=== PATIENT | male | born 1965 | race Caucasian/White ===

== ENCOUNTER 2017-03-13 08:42 | Day surgery (SDC) | payer OTHER ==
[~2017-03-13 08:42] MED LIST: HYDROmorphone HCL 2 MG/ML VIAL IV PRN; RINGER'S SOLUTION,LACTATED 1,000 ML IV PRN; ROPIVACAINE HCL/PF 40 MG in NORMAL SALINE 16 ML IJ PRN; ceFAZolin SODIUM 1 GM VIAL IV PRN; oxyCODONE HCL/ACETAMINOPHEN 1 TAB TABLET PO PRN
[2017-03-13] MEDS ORDERED: BUPIVACAINE HCL/EPINEPHRINE 10 ML VIAL IJ ONE (11:10)
--- NOTE | 2017-03-13 11:54 | OR ---
Operative Report - Dictated Report Narrative: Date: 03/13/2017 Physician: Torres Davey M.D. Direct Care Provider: Scot Bella PA-C Preoperative diagnosis: Left Knee peripheral medial meniscus tear Postoperative diagnosis: Left Knee peripheral medial meniscus tear Procedure: Left knee arthroscopy with medial meniscus repair Anesthesia: MAC Plus local Complications: None Estimated blood loss: Minimal Tourniquet time: None Specimens: None Retained implants: [employer] Fas[employer]-Fix meniscus repair anchor 2 Drains: None Indications: Mr. Chau Is a 51 year-old gentleman who sustained an injury while work and has been followed in my clinic with complaints of knee pain consistent with suspected medial joint pathology. Physical exam and diagnostic imaging were consistent with these complaints and concern for peripheral medial meniscus pathology. Conservative measures have failed including, but not limited to, passage of time, activity modification, medications, and injections. The risks , benefits, and alternatives were discussed in clinic. The risks being , bleeding, infection, blood clots, nerve, tendon, ligament, blood vessel injury, persistent pain, arthrosis, need for additional procedures, and persistent symptoms. Consent was obtained in the clinic. Procedure: After marking the correct extremity in the preoperative holding area, a timeout was performed in the operating room. IV antibiotics consisting of Ancef were administered prior to the procedure. A well-padded tourniquet was applied to the operative upper thigh. The leg was prepped and draped in a standard sterile fashion. 0.5% Marcaine with epinephrine was infused into the projected portal sites as well as the intra-articular space. A gilbert incision was made for inferior lateral portal. A blunt trocar and cannula was introduced into the knee. The suprapatellar pouch revealed no pathology. The medial patella facet showed grade 1 change. The lateral patella facet showed no arthrosis. The trochlea showed no arthrosis. The medial gutter revealed no pathology. The medial joint space was then entered utilizing a lateral post and valgus stress. A spinal needle was utilized for guidance into placement of an anterior medial portal. This was placed just superior to the medial meniscus ensuring that we could reach the posterior aspect of the medial joint space. A gilbert incision was made in the site, and the probe was introduced to the knee. The medial joint space was examined, and the medial femoral condyle showed no arthrosis. The medial tibial plateau showed no arthrosis. The medial meniscus had an approximately 2 cm long tear in the red red zone at the junction of the middle and posterior thirds. The notch was then examined, and the ACL was noted to be intact. The PCL was noted to be intact. The lateral joint space was then examined using a varus force in the figure 4 position. Lateral femoral condyle showed no arthrosis. Lateral tibial plateau showed no arthrosis. The lateral meniscus showed no tear. The lateral gutter showed no pathology. Based on the location of this tear as well as the fact that it would require significant resection of his meniscus in order to remove the torn area it was felt that he would benefit from a meniscus repair. Also due to the fact that he had no noted arthrosis I felt this was the best plan of attack. Needle was utilized in order to trephinate the tear site. 2 fast fix anchors were placed in a horizontal mattress fashion across the tear on the undersurface of the meniscus. These were tightened and secured and noted to stabilize the meniscal tear. In order to increase the healing rate, a microfracture awl was utilized in order to make 3 microfractures along the notch at the medial femoral condyle. Outflow blood and fat was noted when suctioning these holes. Once it was felt that we adequately addressed the pathology, the knee was thoroughly irrigated. The fluid was evacuated ensuring that we have removed all meniscal, chondral, and any other loose bodies. A final evaluation of the joint showed no additional pathology. The fluid was then evacuated of the knee, and the trocar and camera were removed from the joint. The wounds were closed with interrupted nylon after placing 20 mL of 0.2 % ropivacaine into the joint. Dressings consisting of Xeroform, 4 x 4, ABD, soft roll, and an Ten were applied. All sponge, needle, blade, and instrument counts were correct prior to closing the wounds. The patient was awoken and transferred to the postanesthesia care unit in stable condition.
[2017-03-13 13:03] VITALS: BP 127/80
== END 2017-03-13 08:43 | disposition home or self-care (01) ==
LOC: AMB 08:42
PROVIDERS: ATTEND Orthopaedic Surgery
PROC: 0SQD4ZZ Repair Left Knee Joint, Percutaneous Endoscopic Approach (ICD-10-PCS; principal; 2017-03-13 12:00)
DX: M23.222 Derangement of posterior horn of medial meniscus due to old tear or injury, left knee (principal); F17.200 Nicotine dependence, unspecified, uncomplicated; Z68.21 Body mass index [BMI] 21.0-21.9, adult